=== PATIENT | male | born 1995 | race Two or more races ===

== ENCOUNTER 2019-04-07 14:34 | Emergency (ER) | payer SELFPAY ==
[~2019-04-07] VITALS: Ht 175.3 cm; Wt 76.4 kg
[2019-04-07 15:30] VITALS: BP 126/82
[2019-04-07] MEDS ORDERED: CEPHALEXIN MONOHYDRATE 500 MG CAPSULE PO ONE (15:30)
[2019-04-07] MEDS ORDERED: IBUPROFEN 600 MG TABLET PO ONE (15:30)
== END 2019-04-07 15:55 | disposition home or self-care (01) ==
LOC: EMS 14:37
DX: L03.032 Cellulitis of left toe (principal)

== ENCOUNTER 2019-05-26 11:43 | Emergency (ER) | payer SELFPAY ==
[~2019-05-26] VITALS: Ht 175.3 cm; Wt 80.9 kg
[2019-05-26] MEDS ORDERED: IBUPROFEN 600 MG TABLET PO ONE (12:15)
[2019-05-26] MEDS ORDERED: BENZOCAINE/MENTHOL LOZENGE PO ONE (12:15)
[2019-05-26] MEDS ORDERED: DEXAMETHASONE 4 MG TABLET PO ONE (12:15)
[2019-05-26 13:08] VITALS: BP 131/83
== END 2019-05-26 13:20 | disposition home or self-care (01) ==
LOC: EMS 11:44
DX: J02.9 Acute pharyngitis, unspecified (principal)
CPT/HCPCS: 87430; 99284; J8540

== ENCOUNTER 2019-12-29 17:21 | Emergency (ER) | payer MEDICAID, OTHER ==
[~2019-12-29] VITALS: Ht 175.3 cm; Wt 81.8 kg
[2019-12-29 21:37] VITALS: BP 136/78
== END 2019-12-29 21:39 | disposition home or self-care (01) ==
LOC: EMS 17:22
DX: F41.9 Anxiety disorder, unspecified (principal); F17.210 Nicotine dependence, cigarettes, uncomplicated

== ENCOUNTER 2020-06-19 19:16 | Emergency (ER) | payer MEDICAID, OTHER ==
[~2020-06-19] VITALS: Ht 175.3 cm; Wt 86.4 kg
[2020-06-19 20:40] VITALS: BP 145/84
[2020-06-19] MEDS ORDERED: LORazepam 1 MG TABLET PO ONE (20:45)
== END 2020-06-19 20:40 | disposition home or self-care (01) ==
LOC: EMS 19:17
DX: F41.9 Anxiety disorder, unspecified (principal); F17.210 Nicotine dependence, cigarettes, uncomplicated; F10.129 Alcohol abuse with intoxication, unspecified
CPT/HCPCS: 99406

== ENCOUNTER 2020-06-26 15:24 | Emergency (ER) | payer OTHER ==
[~2020-06-26] VITALS: Ht 172.7 cm; Wt 86.4 kg
[2020-06-26 15:34] VITALS: BP 136/75
[2020-06-26] MEDS ORDERED: ChlordiazePOXIDE HCL 25 MG CAPSULE PO ONE (17:00)
== END 2020-06-26 18:34 | disposition home or self-care (01) ==
LOC: EMS 15:24
DX: F41.9 Anxiety disorder, unspecified (principal); R03.0 Elevated blood-pressure reading, without diagnosis of hypertension; Z87.891 Personal history of nicotine dependence

== ENCOUNTER 2020-09-24 19:12 | Emergency (ER) | payer OTHER ==
[~2020-09-24] VITALS: Ht 175.3 cm; Wt 76.0 kg
[2020-09-24 19:17] VITALS: BP 127/79
== END 2020-09-24 20:23 | disposition home or self-care (01) ==
LOC: EMS 19:12
DX: F41.9 Anxiety disorder, unspecified (principal); F10.239 Alcohol dependence with withdrawal, unspecified; Z87.891 Personal history of nicotine dependence

== ENCOUNTER 2021-03-26 11:29 | Emergency (ER) | payer OTHER ==
[~2021-03-26] VITALS: Ht 175.3 cm; Wt 85.5 kg
[2021-03-26] MEDS ORDERED: LORazepam 1 MG TABLET PO ONE (12:30)
[2021-03-26 13:49] VITALS: BP 153/99
== END 2021-03-26 12:56 | disposition home or self-care (01) ==
LOC: EMS 11:37
DX: F41.9 Anxiety disorder, unspecified (principal); F10.129 Alcohol abuse with intoxication, unspecified; Y90.9 Presence of alcohol in blood, level not specified
CPT/HCPCS: 99283

== ENCOUNTER 2023-08-22 01:03 | Emergency (ER) | payer MEDICAID, OTHER ==
[~2023-08-22] VITALS: Ht 175.3 cm; Wt 68.2 kg
[2023-08-22 01:16] VITALS: BP 114/67; PULSE 105; RESP 16; TEMP 98.6
[2023-08-22] MEDS ORDERED: LORazepam 2 MG/ML VIAL IM ONE (02:15)
== END 2023-08-22 02:59 | disposition left against medical advice (07) ==
LOC: EMS 01:03
DX: F10.229 Alcohol dependence with intoxication, unspecified (principal); F41.9 Anxiety disorder, unspecified; Z87.891 Personal history of nicotine dependence; Z98.890 Other specified postprocedural states; Y90.9 Presence of alcohol in blood, level not specified
CPT/HCPCS: 99283; 96372; J2060

== ENCOUNTER 2024-03-05 01:10 | Emergency (ER) | payer OTHER ==
[~2024-03-05] VITALS: Ht 175.3 cm; Wt 68.2 kg
[2024-03-05 01:12] VITALS: BP 134/84; PULSE 117; RESP 16; TEMP 97.9
[2024-03-05] MEDS: LORazepam 1 MG TABLET PO ONE ×2 (02:12→02:15)
== END 2024-03-05 04:01 | disposition home or self-care (01) ==
LOC: EMS 01:10
DX: F41.9 Anxiety disorder, unspecified (principal); F10.20 Alcohol dependence, uncomplicated; F12.90 Cannabis use, unspecified, uncomplicated; Z87.891 Personal history of nicotine dependence; Y90.9 Presence of alcohol in blood, level not specified
CPT/HCPCS: 99283

== ENCOUNTER 2024-03-25 01:02 | Emergency (ER) | payer OTHER ==
[~2024-03-25] VITALS: Ht 165.1 cm; Wt 70.0 kg
[2024-03-25 01:28] VITALS: TEMP 98.1
[2024-03-25] MEDS: SODIUM CHLORIDE 0.9% 1,000 ML IV ONE (02:18)
[2024-03-25] MEDS: LORazepam 2 MG/ML VIAL IVP ONE (02:18)
[2024-03-25 02:28] LABS: BASOPHILS % (AUTO) 0.7 % (0.0-2.0); EOSINOPHILS % (AUTO) 1.2 % (1.0-6.0); HEMATOCRIT 47.4 % (41-53); HEMOGLOBIN 16.2 g/dL (13.5-17.5); LYMPHOCYTES # (AUTO) 3.1 K/uL (1.0-4.8); LYMPHOCYTES % (AUTO) 31.1 % (22.0-44.0); MEAN CORPUSCULAR HEMOGLOBIN 29.1 pg (26.0-34.0); MEAN CORPUSCULAR HGB CONC 34.1 G/dL (31.0-37.0); MEAN CORPUSCULAR VOLUME 85 fL (80-100); MONOCYTES # (AUTO) 0.9 K/uL (0.1-1.0); MONOCYTES % (AUTO) 8.9 % (2.0-9.0); NEUTROPHILS # (AUTO) 5.9 K/uL (1.8-7.7); NEUTROPHILS % (AUTO) 58.1 % (40.0-70.0); PLATELET COUNT (AUTO) 304 K/uL (150-450); RED BLOOD CELL COUNT(AUTO) 5.57 MIL/uL (4.50-5.90); RED CELL DISTRIBUTION WIDTH 14.2 % (11.5-14.5); WHITE BLOOD COUNT (AUTO) 10.1 K/uL (4.5-11.0)
[2024-03-25 02:47] LABS: ANION GAP 11 mmol/L (8-16); CALCIUM, TOTAL 9.6 mg/dL (8.8-10.5); CARBON DIOXIDE 29 mmol/L (22-29); CHLORIDE 102 mmol/L (98-107); CREATININE 0.94 mg/dL (0.60-1.30); GLOMERULAR FILTR. RATE CALC > 60 mL/min (>60); GLUCOSE,RANDOM 97 mg/dL (70-110); POTASSIUM 3.6 mmol/L (3.5-5.1); SODIUM SERUM 142 mmol/L (136-145); UREA NITROGEN, BLOOD 10 mg/dL (7-18)
[2024-03-25 02:48] LABS: ALCOHOL, BLOOD (SERUM) 129 mg/dL (0-10)
[2024-03-25 02:52] VITALS: BP 121/91; PULSE 87; RESP 18
[2024-03-25 02:52] LABS: ALCOHOL, URINE DRUG SCREEN POSITIVE (NEGATIVE); AMPHET/METH SCREEN,URINE POSITIVE (NEGATIVE); BARBITURATE SCREEN, URINE NEGATIVE (NEGATIVE); BENZODIAZEPINES SCREEN,URINE NEGATIVE (NEGATIVE); CANNABINOID SCREEN,URINE NEGATIVE (NEGATIVE); COCAINE SCREEN,URINE NEGATIVE (NEGATIVE); METHADONE SCREEN, URINE NEGATIVE (NEGATIVE); OPIATE SCREEN,URINE NEGATIVE (NEGATIVE); PHENCYCLIDINE SCREEN,URINE NEGATIVE (NEGATIVE)
[2024-03-25 03:00] LABS: TROPONIN I-HIGH SENSITIVITY Less Than 4 ng/L (<76)
[2024-03-25 03:10] LABS: PH,URINE DRUG SCREEN 5.5 (5.0-8.0)
== END 2024-03-25 03:44 | disposition home or self-care (01) ==
LOC: EMS 01:02
DX: F41.9 Anxiety disorder, unspecified (principal); F15.90 Other stimulant use, unspecified, uncomplicated; F10.20 Alcohol dependence, uncomplicated; F12.90 Cannabis use, unspecified, uncomplicated; Z87.891 Personal history of nicotine dependence; Z98.890 Other specified postprocedural states
CPT/HCPCS: 99284; 96374; 96361; 80048; 83735; 84484; 85025; 36415; 93005; 80307; G0480; J2060; J7030

== ENCOUNTER 2024-04-08 22:31 | Emergency (ER) | payer OTHER ==
[~2024-04-08] VITALS: Ht 172.7 cm; Wt 72.7 kg
[2024-04-08 22:37] VITALS: BP 128/78; PULSE 135; RESP 12; TEMP 99
[2024-04-08] MEDS ORDERED: PROP10TA73 PO (22:47)
[2024-04-08] MEDS ORDERED: CLON-592 PO (22:47)
[2024-04-09] MEDS ORDERED: LORazepam 2 MG/ML VIAL ONE (00:29)
[2024-04-09] MEDS: LORazepam 2 MG/ML VIAL IM ONE (00:39)
== END 2024-04-09 02:24 | disposition left against medical advice (07) ==
LOC: EMS 22:31
DX: F41.9 Anxiety disorder, unspecified (principal); Z53.21 Procedure and treatment not carried out due to patient leaving prior to being seen by health care provider
CPT/HCPCS: 93005; J2060

== ENCOUNTER 2024-04-16 23:50 | Emergency (ER) | payer OTHER ==
[~2024-04-16] VITALS: Ht 172.7 cm; Wt 75.0 kg
[~2024-04-16 23:50] MED LIST: CLON-592 PO; PROP10TA73 PO
[2024-04-17 01:04] LABS: APPEARANCE,URINE CLEAR (CLEAR); BILIRUBIN,URINE NEGATIVE (NEGATIVE); COLOR,URINE LIGHT YELLOW (YELLOW); GLUCOSE, URINE (UA) NEGATIVE (NEGATIVE); KETONES,URINE TRACE mg/dL (NEGATIVE); LEUKOCYTE ESTERASE ,URINE NEGATIVE (NEGATIVE); NITRATE,URINE NEGATIVE (NEGATIVE); OCCULT BLOOD,URINE NEGATIVE (NEGATIVE); PH,URINE 5.5 (5.0-8.0); PH,URINE DRUG SCREEN 5.5 (5.0-8.0); PROTEIN,URINE NEGATIVE (NEGATIVE); SPECIFIC GRAVITIY, URINE 1.014 (1.003-1.030); UROBILINOGEN,URINE <=1.0 mg/dL (<=1.0)
[2024-04-17 01:10] LABS: ALCOHOL, URINE DRUG SCREEN POSITIVE (NEGATIVE); AMPHET/METH SCREEN,URINE POSITIVE (NEGATIVE); BARBITURATE SCREEN, URINE NEGATIVE (NEGATIVE); BENZODIAZEPINES SCREEN,URINE NEGATIVE (NEGATIVE); CANNABINOID SCREEN,URINE NEGATIVE (NEGATIVE); COCAINE SCREEN,URINE NEGATIVE (NEGATIVE); METHADONE SCREEN, URINE NEGATIVE (NEGATIVE); OPIATE SCREEN,URINE NEGATIVE (NEGATIVE); PHENCYCLIDINE SCREEN,URINE NEGATIVE (NEGATIVE)
[2024-04-17 01:30] VITALS: BP 128/74; PULSE 96; RESP 18; TEMP 98.3
[2024-04-17] MEDS: DiphenhydrAMINE HCL 25 MG CAPSULE PO ONE (01:38)
[2024-04-17] MEDS: LORazepam 2 MG/ML VIAL IM ONE (01:38)
[2024-04-17] MEDS: HALOPERIDOL 5 MG TABLET PO ONE (01:38)
== END 2024-04-17 02:29 | disposition home or self-care (01) ==
LOC: EMS 23:50
DX: F15.20 Other stimulant dependence, uncomplicated (principal); F41.9 Anxiety disorder, unspecified; F10.10 Alcohol abuse, uncomplicated; F17.210 Nicotine dependence, cigarettes, uncomplicated; F12.90 Cannabis use, unspecified, uncomplicated; Z79.899 Other long term (current) drug therapy; Y90.6 Blood alcohol level of 120-199 mg/100 ml
CPT/HCPCS: 99283; 80307; 81003; 96372; J2060

== ENCOUNTER 2024-07-26 16:45 | Emergency (ER) | payer OTHER ==
[~2024-07-26] VITALS: Ht 175.3 cm; Wt 72.7 kg
[2024-07-26 16:49] VITALS: BP 126/90; PULSE 88; RESP 18; TEMP 98; O2SAT 99
[2024-07-26] MEDS ORDERED: CLON-592 PO ×2 (19:27→19:48)
[2024-07-26] MEDS: ClonazePAM 1 MG TABLET PO ONE (19:33)
== END 2024-07-26 20:02 | disposition home or self-care (01) ==
LOC: EMS 18:20
DX: F41.9 Anxiety disorder, unspecified (principal); F10.20 Alcohol dependence, uncomplicated; F17.210 Nicotine dependence, cigarettes, uncomplicated; F15.90 Other stimulant use, unspecified, uncomplicated; F12.90 Cannabis use, unspecified, uncomplicated; Z76.0 Encounter for issue of repeat prescription; Z98.890 Other specified postprocedural states; Y90.9 Presence of alcohol in blood, level not specified
CPT/HCPCS: 99283

== ENCOUNTER 2024-07-27 18:39 | Emergency (ER) | payer OTHER ==
[~2024-07-27] VITALS: Ht 167.6 cm; Wt 72.0 kg
[2024-07-27 18:44] VITALS: BP 139/88; PULSE 99; RESP 16; TEMP 98.4; O2SAT 99
[2024-07-27 19:52] LABS: BASOPHILS % (AUTO) 0.6 % (0.0-2.0); EOSINOPHILS % (AUTO) 1.3 % (1.0-6.0); HEMATOCRIT 45.6 % (41-53); HEMOGLOBIN 15.1 g/dL (13.5-17.5); LYMPHOCYTES # (AUTO) 2.2 K/uL (1.0-4.8); LYMPHOCYTES % (AUTO) 32.5 % (22.0-44.0); MEAN CORPUSCULAR HEMOGLOBIN 27.6 pg (26.0-34.0); MEAN CORPUSCULAR VOLUME 84 fL (80-100); MONOCYTES # (AUTO) 0.5 K/uL (0.1-1.0); MONOCYTES % (AUTO) 7.3 % (2.0-9.0); NEUTROPHILS # (AUTO) 3.9 K/uL (1.8-7.7); NEUTROPHILS % (AUTO) 58.3 % (40.0-70.0); PLATELET COUNT (AUTO) 293 K/uL (150-450); RED BLOOD CELL COUNT(AUTO) 5.45 MIL/uL (4.50-5.90); RED CELL DISTRIBUTION WIDTH 13.8 % (11.5-14.5); WHITE BLOOD COUNT (AUTO) 6.6 K/uL (4.5-11.0)
[2024-07-27 19:56] LABS: ANION GAP 11 mmol/L (8-16); CALCIUM, TOTAL 9.1 mg/dL (8.8-10.5); CARBON DIOXIDE 27 mmol/L (22-29); CHLORIDE 101 mmol/L (98-107); CREATININE 1.23 mg/dL (0.60-1.30); GLOMERULAR FILTR. RATE CALC > 60 mL/min (>60); GLUCOSE,RANDOM 75 mg/dL (70-110); POTASSIUM 4.1 mmol/L (3.5-5.1); SODIUM SERUM 139 mmol/L (136-145); UREA NITROGEN, BLOOD 14 mg/dL (7-18)
[2024-07-27] MEDS: ClonazePAM 1 MG TABLET PO ONE (20:11)
== END 2024-07-27 20:15 | disposition home or self-care (01) ==
LOC: EMS 18:50
DX: F41.9 Anxiety disorder, unspecified (principal); F10.20 Alcohol dependence, uncomplicated; F17.210 Nicotine dependence, cigarettes, uncomplicated; Z98.890 Other specified postprocedural states
CPT/HCPCS: 80048; 85025; 99283

== ENCOUNTER 2025-06-04 11:08 | Emergency (ER) | payer OTHER ==
[~2025-06-04] VITALS: Ht 175.3 cm; Wt 64.8 kg
[2025-06-04 11:15] VITALS: TEMP 98
[2025-06-04] MEDS: LORazepam 2 MG/ML VIAL IVP ONE (11:29)
[2025-06-04] MEDS: SODIUM CHLORIDE 0.9% 500 ML IV ONE (11:29)
[2025-06-04 12:49] VITALS: BP 107/64; PULSE 84; RESP 13; O2SAT 94
== END 2025-06-04 14:52 | disposition home or self-care (01) ==
LOC: EMS 11:26
DX: F15.90 Other stimulant use, unspecified, uncomplicated (principal); F41.9 Anxiety disorder, unspecified; F17.210 Nicotine dependence, cigarettes, uncomplicated; Z98.890 Other specified postprocedural states; Z79.899 Other long term (current) drug therapy
CPT/HCPCS: 99284; 96374; 96375; 96361; J1200; J1630; J2060; J7040